=== PATIENT | male | born 1975 | race African-American/Black ===

== ENCOUNTER 2019-09-03 17:28 | Emergency (ER) | payer SELFPAY ==
--- NOTE | 2019-09-03 18:00 | EDM.PDOC ---
ED HPI GENERAL MEDICAL PROBLEM - General Chief Complaint: General Stated Complaint: BP ELEVATION Time Seen by Provider: 09/03/19 17:38 Source of Information: Reports: Patient History Limitations: Reports: No Limitations - History of Present Illness INITIAL COMMENTS - FREE TEXT/NARRATIVE: Patient is a 44-year-old gentleman who presents to the emergency department this evening via private vehicle for a complaint of blood pressure issue. Patient states he's been taking his blood pressure last couple days and noticed that it's been elevated. Patient contacted the clinic and was told to follow- up tomorrow or Saturday. However, he was concerned, so presented to the emergency department. Patient said blood pressures been running 150-160 systolic. Patient is currently on 10 mg lisinopril daily. Patient states that he used to take it at 6-7 o'clock in the morning, but the last week or so he's been taken at 1 p.m. in the afternoon. Patient changed medication time because of a sleeping scheduled. Patient does have intermittent GERD. Patient denies fever, chest pain, out of area travel, cough, nausea, vomiting, diarrhea, headache, abdominal pain, lower extremity edema, early cardiac family history, or any other cardiac history. Onset: Gradual Duration: Chronic Severity: Mild Improves with: Reports: None Worsens with: Reports: None Associated Symptoms: Reports: No Other Symptoms - Related Data Allergies Allergy/AdvReac Type Severity Reaction Status Date / Time acetaminophen [From Tylenol] Allergy Vomiting Verified 09/03/19 17:55 codeine Allergy Vomiting Verified 09/03/19 17:55 Home Meds: Home Meds SUMAtriptan Succinate [Imitrex] 2 tab PO ASDIRECTED PRN 08/18/13 [History] Ibuprofen [Advil] 3 tab PO Q4HR PRN 08/21/13 [History] Past Medical History - Past Health History Medical/Surgical History: Denies Medical/Surgical History ED ROS GENERAL - Review of Systems Review Of Systems: Comprehensive ROS is negative, except as noted in HPI. Constitutional: Reports: No Symptoms HEENT: Reports: No Symptoms Respiratory: Reports: No Symptoms Cardiovascular: Reports: No Symptoms Endocrine: Reports: No Symptoms GI/Abdominal: Reports: Other (Heartburn) : Reports: No Symptoms Musculoskeletal: Reports: No Symptoms Skin: Reports: No Symptoms Neurological: Reports: No Symptoms Psychiatric: Reports: No Symptoms Hematologic/Lymphatic: Reports: No Symptoms Immunologic: Reports: No Symptoms ED EXAM, GENERAL - Physical Exam Exam: See Below Exam Limited By: No Limitations General Appearance: Alert, WD/WN, No Apparent Distress Eye Exam: Bilateral Eye: Normal Inspection Nose: Normal Inspection, Normal Mucosa, No Blood Throat/Mouth: Normal Inspection, Normal Oropharynx, No Airway Compromise Head: Atraumatic, Normocephalic Neck: Normal Inspection, Supple, Non-Tender, Full Range of Motion Respiratory/Chest: No Respiratory Distress, Lungs Clear, Normal Breath Sounds, No Accessory Muscle Use, Chest Non-Tender Cardiovascular: Normal Peripheral Pulses, Regular Rate, Rhythm, No Murmur, No Rub GI/Abdominal: Normal Bowel Sounds, Soft, Non-Tender, No Abnormal Bruit Back Exam: Normal Inspection. No: CVA Tenderness (L), CVA Tenderness (R) Extremities: Normal Inspection, No Pedal Edema Neurological: Alert, Oriented, Normal Cognition Psychiatric: Normal Affect, Normal Mood Skin Exam: Warm, Dry, Intact, Normal Color, No Rash Lymphatic: No Adenopathy EKG INTERPRETATION EKG Date: 09/03/19 Time: 18:10 Rhythm: Other (Sinus bradycardia with first-degree AV block) Rate (Beats/Min): 48 Horatio: Normal P-Wave: Present QRS: Normal ST-T: Normal QT: Normal Comparison: No Change (Per Soy Luo, SANKET) Course - Vital Signs Last Recorded V/S: Last Vital Signs Temp 97.7 F 09/03/19 17:35 Pulse 65 09/03/19 17:35 Resp 20 09/03/19 17:35 BP 137/83 09/03/19 17:35 Pulse Ox 95 09/03/19 17:35 - Orders/Labs/Meds Orders: Active Orders 24 hr Category Date Time Status EKG Documentation Completion [RC] ASDIRECTED Care 09/03/19 17:53 Ordered EKG 12 Lead [EK] Routine Ther 09/03/19 17:53 Ordered - Re-Assessments/Exams Free Text/Narrative Re-Assessment/Exam: 09/03/19 18:21 patient afebrile, vital signs stable, denies chest pain or shortness of breath. EKG performed and did show sinus bradycardia at 48 with first AV block. Discussed case with Soy Luo and he states that this is normal EKG for this patient, no need for workup tonight, and he will have patient follow-up in the office tomorrow. Departure - Departure Time of Disposition: 18:22 Disposition: Home, Self-Care 01 Condition: Good Clinical Impression: Hypertension screening - Discharge Information Instructions: Hypertension, Adult, [id number], Managing Your Hypertension Referrals: Soy Luo [employer] OFFICER [Primary Care Provider] - Forms: ED Department Discharge Additional Instructions: Follow-up as scheduled tomorrow at [facility] with Soy Luo. Return to emergency department sooner if symptoms continue or worsen. Sepsis Event Note - Evaluation Sepsis Screening Result: No Definite Risk - Focused Exam Vital Signs: Vital Signs Temp Pulse Resp BP Pulse Ox 09/03/19 17:35 97.7 F 65 20 137/83 95 Date Exam was Performed: 09/03/19 Time Exam was Performed: 17:55 - My Orders Last 24 Hours: My Active Orders 09/03/19 17:53 EKG Documentation Completion [RC] ASDIRECTED EKG 12 Lead [EK] Routine - Assessment/Plan Last 24 Hours: My Active Orders 09/03/19 17:53 EKG Documentation Completion [RC] ASDIRECTED EKG 12 Lead [EK] Routine Assessment:: Hypertension Plan: Follow-up at clinic tomorrow as scheduled
== END 2019-09-03 18:35 | disposition home or self-care (01) ==
LOC: KA.ED 17:28
DX: Z13.6 Encounter for screening for cardiovascular disorders (principal); Z88.5 Allergy status to narcotic agent; Z88.8 Allergy status to other drugs, medicaments and biological substances
CPT/HCPCS: 93005; 99282-25; 99284

== ENCOUNTER 2019-09-06 04:06 | Emergency (ER) | payer SELFPAY ==
[2019-09-06 04:20] VITALS: BP 144/85; PULSE 70
--- NOTE | 2019-09-06 04:43 | EDM.PDOC ---
ED HPI GENERAL MEDICAL PROBLEM - General Chief Complaint: General Stated Complaint: hemorrhoids Time Seen by Provider: 09/06/19 04:36 Source of Information: Reports: Patient History Limitations: Reports: No Limitations - History of Present Illness INITIAL COMMENTS - FREE TEXT/NARRATIVE: Patient is a 44-year-old gentleman who presents to the emergency department via private vehicle this evening with a complaint of rectal bleeding. Patient states that approximately 1130 p.m. last night following a bowel movement. He had rectal bleeding. Patient states that he took a shower and noticed a lot of blood. Patient states that bleeding was intermittent, but continued and he became concerned and presented to the emergency department. Patient admits to history of intermittent hemorrhoids. He uses Epson salt bath and hemorrhoid cream. Today was sudden followed bowel movement and they became concerned. Patient denies chest pain, shortness of breath, weakness, abdominal pain, leading disorders, anticoagulation therapy, nausea, vomiting. Onset: Sudden Onset Date: 09/05/19 Onset Time: 23:30 Duration: Hour(s): Location: Reports: Other (Rectum) Quality: Reports: Burning Severity: Mild Improves with: Reports: None Worsens with: Reports: Other (Bowel movement) Associated Symptoms: Reports: No Other Symptoms - Related Data Allergies Allergy/AdvReac Type Severity Reaction Status Date / Time acetaminophen [From Tylenol] Allergy Vomiting Verified 09/06/19 04:07 codeine Allergy Vomiting Verified 09/06/19 04:07 Home Meds: Home Meds lisinopriL [Lisinopril] 10 mg PO DAILY 09/03/19 [History] Melatonin 5 mg PO BEDTIME PRN 09/06/19 [History] Past Medical History - Past Health History Medical/Surgical History: Denies Medical/Surgical History Cardiovascular History: Reports: Hypertension Gastrointestinal History: Reports: Hemorrhoids Psychiatric History: Reports: Anxiety Social & Family History - Tobacco Use Smoking Status *Q: Former Smoker Used Tobacco, but Quit: Yes Month/Year Tobacco Last Used: 08/31/2019 - Caffeine Use Caffeine Use: Reports: None - Recreational Drug Use Recreational Drug Use: No ED ROS GENERAL - Review of Systems Review Of Systems: Comprehensive ROS is negative, except as noted in HPI. Constitutional: Reports: No Symptoms HEENT: Reports: No Symptoms Respiratory: Reports: No Symptoms Cardiovascular: Reports: No Symptoms Endocrine: Reports: No Symptoms GI/Abdominal: Reports: Other (Bleeding hemorrhoid) : Reports: No Symptoms Musculoskeletal: Reports: No Symptoms Skin: Reports: No Symptoms Neurological: Reports: No Symptoms Psychiatric: Reports: No Symptoms Hematologic/Lymphatic: Reports: No Symptoms Immunologic: Reports: No Symptoms ED EXAM, GENERAL - Physical Exam Exam: See Below Exam Limited By: No Limitations General Appearance: Alert, WD/WN, No Apparent Distress Throat/Mouth: Normal Inspection, Normal Oropharynx, No Airway Compromise Respiratory/Chest: No Respiratory Distress GI/Abdominal: Normal Bowel Sounds, Soft, Non-Tender, No Organomegaly, No Distention, Other (External thrombosed hemorrhoid with blood clot, but currently hemostatic) Back Exam: Normal Inspection. No: CVA Tenderness (L), CVA Tenderness (R) Extremities: Normal Inspection Neurological: Alert, Oriented, Normal Cognition Psychiatric: Normal Affect, Normal Mood Skin Exam: Warm, Dry, Intact, Normal Color, No Rash Lymphatic: No Adenopathy Course - Vital Signs Last Recorded V/S: Last Vital Signs Temp 97.6 F 09/06/19 04:15 Pulse 70 09/06/19 04:15 Resp 20 09/06/19 04:15 BP 144/85 H 09/06/19 04:15 Pulse Ox 95 09/06/19 04:15 - Re-Assessments/Exams Free Text/Narrative Re-Assessment/Exam: 09/06/19 04:43 Patient afebrile, vital signs stable, gauze applied to external thrombosed hemorrhoid for good hemostasis. Patient will follow-up at [facility]. Departure - Departure Time of Disposition: 04:44 Disposition: Home, Self-Care 01 Condition: Good Clinical Impression: Hemorrhoids - Discharge Information Instructions: Hemorrhoids, [id number], Nonsurgical Procedures for Hemorrhoids , Surgical Procedures for Hemorrhoids Referrals: Cruz Mahajan MD [Physician] - Additional Instructions: Follow-up at [facility] tomorrow. Return to emergency department sooner symptoms continue or worsen. Sepsis Event Note - Evaluation Sepsis Screening Result: No Definite Risk - Focused Exam Vital Signs: Vital Signs Temp Pulse Resp BP Pulse Ox 09/06/19 04:15 97.6 F 70 20 144/85 H 95 Date Exam was Performed: 09/06/19 Time Exam was Performed: 04:36 - Assessment/Plan Assessment:: Hemorrhoids Plan: Follow-up at [facility]
== END 2019-09-06 04:50 | disposition home or self-care (01) ==
LOC: KA.ED 04:06
DX: K64.4 Residual hemorrhoidal skin tags (principal); I10 Essential (primary) hypertension; Z87.891 Personal history of nicotine dependence; Z88.5 Allergy status to narcotic agent; Z88.8 Allergy status to other drugs, medicaments and biological substances; Z79.899 Other long term (current) drug therapy
CPT/HCPCS: 99283

== ENCOUNTER 2021-01-04 08:22 | Emergency (ER) | payer MEDICAID ==
--- NOTE | 2021-01-04 08:44 | EDM.PDOC ---
ED HPI GENERAL MEDICAL PROBLEM - General Chief Complaint: ENT Problem Stated Complaint: cough Time Seen by Provider: 01/04/21 08:43 Source of Information: Reports: Patient - History of Present Illness INITIAL COMMENTS - FREE TEXT/NARRATIVE: Gagandeep, 45-year-old male, presents to the emergency department as he was unable to obtain a clinic appointment this morning. Yesterday he had a hard cough and felt a pressure/pain in his lower neck on the right side. He had sinus congestion symptoms last week as he states his daughter had similar symptoms that resolved with his starting at the time of her resolution. He has not had fever but states fullness in his head and face and then the cough. At the time the cough induced this pain he has felt irritated to swallowing of food or drink as well as cough worsening throat pain. He has had no other symptoms of body aches shortness of breath, or GI upset. Onset: Today, Sudden Duration: Hour(s): Location: Reports: Neck Quality: Reports: Burning Severity: Severe Improves with: Reports: None Worsens with: Reports: Eating Associated Symptoms: Reports: No Other Symptoms Throat Pain Score (Numeric/FACES): 8 - Related Data Allergies Allergy/AdvReac Type Severity Reaction Status Date / Time acetaminophen [From Tylenol] Allergy Vomiting Verified 01/04/21 08:46 codeine Allergy Vomiting Verified 01/04/21 08:46 Home Meds: Home Meds lisinopriL [Lisinopril] 10 mg PO DAILY 09/03/19 [History] Multivitamin 1 tab PO DAILY 01/04/21 [History] Past Medical History - Past Health History Medical/Surgical History: Denies Medical/Surgical History HEENT History: Reports: Allergic Rhinitis Cardiovascular History: Reports: Hypertension Gastrointestinal History: Reports: Hemorrhoids Psychiatric History: Reports: Anxiety Social & Family History - Family History Family Medical History: No Pertinent Family History - Caffeine Use Caffeine Use: Reports: None ED ROS GENERAL - Review of Systems Review Of Systems: Comprehensive ROS is negative, except as noted in HPI. ED EXAM, GENERAL - Physical Exam Exam: See Below Free Text/Narrative:: Alert, oriented, in mild discomfort to swallowing. There is mild cerumen in the canals with no obstruction and no evidence of irritation to the tympanic membranes. Nasal passages are hypertrophied with dark-tinged drainage. Mild tenderness to the ethmoid and maxillary region to palpation. Oropharynx is erythematous with some drainage present. Significant gag reflex when obtaining culture swabs and any tongue blade manipulation. Moist membranes throughout. Neck is soft supple there is tenderness to the right mid and superior lymph node chain anteriorly with no crepitus or gross enlargement of lymph node present. Thorax is overall clear exhalation does induce cough. Cardiac is regular with no murmur appreciated. No flank pain no abdominal discomfort. Course - Vital Signs Last Recorded V/S: Last Vital Signs Temp 97.2 F 01/04/21 08:41 Pulse 68 01/04/21 08:41 Resp 16 01/04/21 08:41 BP 129/83 01/04/21 08:41 Pulse Ox 97 01/04/21 08:41 - Orders/Labs/Meds Orders: Active Orders 24 hr Category Date Time Status STREP SCRN A RAPID W CULT CONF [RM] Stat Lab 01/04/21 08:57 Results - Re-Assessments/Exams Free Text/Narrative Re-Assessment/Exam: 01/04/21 09:49 Discussed that viral etiology most likely with no findings on rapid strep as well as chest x-ray. Avoid exposures today and follow-up as needed. Departure - Departure Time of Disposition: 09:47 Disposition: Home, Self-Care 01 Condition: Good Clinical Impression: Pharyngitis, Cough - Discharge Information *PRESCRIPTION DRUG MONITORING PROGRAM REVIEWED*: Not Applicable *COPY OF PRESCRIPTION DRUG MONITORING REPORT IN PATIENT MELANIE: Not Applicable Referrals: Soy Luo [employer] [Primary Care Provider] - Forms: ED Department Discharge, ED Return to Work/School Form Additional Instructions: Continue with your salt water gargles and any other oral rinses that are beneficial. Tylenol may be taken as needed for pain or fever, 1000 mg 3 times a day, maximum 3000 mg in 24 hours. Ibuprofen Motrin, or Aleve, may be used also for pain or fever. Ibuprofen dosing maximum of 800 mg every 8 hours with food. Rapid testing was negative for strep, culture is pending and will likely give us a report on Saturday the . Follow-up with your clinic as needed, return to the emergency department if unable to be seen in clinic. No work until tomorrow with slip given for your employer. Sepsis Event Note (ED) - Focused Exam Vital Signs: Vital Signs Temp Pulse Resp BP Pulse Ox 01/04/21 08:41 97.2 F 68 16 129/83 97 - Problem List & Annotations (1) Cough SNOMED Code(s): 30822106 Code(s): R05 - COUGH Status: Acute Priority: High Current Visit: Yes (2) Pharyngitis SNOMED Code(s): 836114786 Code(s): J02.9 - ACUTE PHARYNGITIS, UNSPECIFIED Status: Acute Priority: High Current Visit: Yes Qualifiers: Pharyngitis/tonsillitis etiology: unspecified etiology Qualified Code(s): J02.9 - Acute pharyngitis, unspecified - Problem List Review Problem List Initiated/Reviewed/Updated: Yes - My Orders Last 24 Hours: My Active Orders 01/04/21 08:57 STREP SCRN A RAPID W CULT CONF [RM] Stat - Assessment/Plan Last 24 Hours: My Active Orders 01/04/21 08:57 STREP SCRN A RAPID W CULT CONF [RM] Stat Plan: Continue with your salt water gargles and any other oral rinses that are beneficial. Tylenol may be taken as needed for pain or fever, 1000 mg 3 times a day, maximum 3000 mg in 24 hours. Ibuprofen Motrin, or Aleve, may be used also for pain or fever. Ibuprofen dosing maximum of 800 mg every 8 hours with food. Rapid testing was negative for strep, culture is pending and will likely give us a report on Saturday the . Follow-up with your clinic as needed, return to the emergency department if unable to be seen in clinic. No work until tomorrow with slip given for your employer.
[2021-01-04 08:46] VITALS: BP 129/83; PULSE 68
--- NOTE | 2021-01-04 09:31 | CR ---
[id number] RAD/RAD Chest PA And Lateral EXAM: RAD Chest PA And Lateral INDICATION: COUGH. COMPARISON: None. DISCUSSION/IMPRESSION: Cardiomediastinal silhouette is normal in size and contour. Lungs are clear. No pleural effusion or pneumothorax. Brett Ackerman MD 01/04/21 0953 Thank you for allowing us to participate in the care of your patient.
== END 2021-01-04 10:00 | disposition home or self-care (01) ==
LOC: KA.ED 08:22
DX: J02.9 Acute pharyngitis, unspecified (principal); H61.20 Impacted cerumen, unspecified ear; I10 Essential (primary) hypertension; Z88.5 Allergy status to narcotic agent; Z88.8 Allergy status to other drugs, medicaments and biological substances; Z79.899 Other long term (current) drug therapy
CPT/HCPCS: 71046; 87430; 99283; 99283-25

== ENCOUNTER 2021-05-26 11:50 | Emergency (ER) | payer MEDICAID ==
[2021-05-26] MEDS ORDERED: LORazepam 0.5 MG Tab PO ONE ×2 (13:25→13:32)
--- NOTE | 2021-05-26 13:34 | EDM.PDOC ---
ED HPI GENERAL MEDICAL PROBLEM - General Chief Complaint: General Stated Complaint: COVID SYMPTOMS Time Seen by Provider: 05/26/21 12:22 Source of Information: Reports: Patient, Family (dtr) History Limitations: Reports: No Limitations - History of Present Illness INITIAL COMMENTS - FREE TEXT/NARRATIVE: Patient presents with stress and anxiety. He says he has been dealing with a lot of stress lately and is feeling quite anxious. He denies fever, pain in chest or abdomen, headache, vomiting, diarrhea. He doesn't like taking pills and hasn't ever taken anything for anxiety. - Related Data Allergies Allergy/AdvReac Type Severity Reaction Status Date / Time acetaminophen [From Tylenol] Allergy Vomiting Verified 05/26/21 12:06 codeine Allergy Vomiting Verified 05/26/21 12:06 Home Meds: Home Meds lisinopriL [Lisinopril] 10 mg PO DAILY 09/03/19 [History] Multivitamin 1 tab PO DAILY 01/04/21 [History] Past Medical History - Past Health History Medical/Surgical History: Denies Medical/Surgical History HEENT History: Reports: Allergic Rhinitis Cardiovascular History: Reports: Hypertension Gastrointestinal History: Reports: Hemorrhoids Psychiatric History: Reports: Anxiety Social & Family History - Family History Family Medical History: No Pertinent Family History - Tobacco Use Tobacco Use Status *Q: Current Every Day Tobacco User Years of Tobacco use: 20 Packs/Tins Daily: 0.2 - Caffeine Use Caffeine Use: Reports: Energy Drinks, Tea - Recreational Drug Use Recreational Drug Use: No ED ROS GENERAL - Review of Systems Review Of Systems: Comprehensive ROS is negative, except as noted in HPI. ED EXAM, GENERAL - Physical Exam Exam: See Below Exam Limited By: No Limitations General Appearance: Alert, WD/WN, No Apparent Distress Eye Exam: Bilateral Eye: EOMI, Normal Inspection, PERRL Ears: Normal External Exam, Normal Canal, Hearing Grossly Normal, Normal TMs Nose: Normal Inspection, Normal Mucosa, No Blood Throat/Mouth: Normal Inspection, Normal Lips, Normal Teeth, Normal Gums, Normal Oropharynx, Normal Voice, No Airway Compromise Head: Atraumatic, Normocephalic Neck: Normal Inspection, Full Range of Motion Respiratory/Chest: No Respiratory Distress, Lungs Clear, Normal Breath Sounds Cardiovascular: Regular Rate, Rhythm, No Murmur Back Exam: Normal Inspection, Full Range of Motion Extremities: Normal Inspection, Normal Range of Motion Neurological: Alert, Oriented, Normal Cognition, No Motor/Sensory Deficits Psychiatric: Normal Affect, Normal Mood Skin Exam: Warm, Dry, Intact, Normal Color, No Rash Course - Vital Signs Last Recorded V/S: Last Vital Signs Temp 97.2 F 05/26/21 12:01 Pulse 69 05/26/21 12:01 Resp 18 05/26/21 12:01 BP 125/88 05/26/21 12:01 Pulse Ox 94 L 05/26/21 12:01 - Orders/Labs/Meds Orders: Active Orders 24 hr Category Date Time Status LORazepam [Ativan] Med 05/26/21 13:25 Once 0.5 mg PO ONETIME ONE - Re-Assessments/Exams Free Text/Narrative Re-Assessment/Exam: 05/26/21 13:38 I discussed findings and treatment options with patient. He is okay with trying Ativan as needed. His daughter is only 13 so he doesn'nt have a tow driver today. I sent 4 tabs of ATivan 0.5 mg home with patient to take q4-6h prn anxiety. Advised followup with PCP next week for recheck and to determine if chronic management is needed. Patient discharged to home in stable condition. I warned against any use with alcohol and he says he doesn't drink any more. Departure - Departure Time of Disposition: 13:28 Disposition: Home, Self-Care 01 Condition: Good Clinical Impression: Anxiety as acute reaction to exceptional stress - Discharge Information Instructions: Managing Anxiety, Adult Referrals: Soy Luo, [employer] EDUCATION PRESCHOOL TEACHER [Primary Care Provider] - Additional Instructions: Continue drinking at least 8 cups of water daily. Take the Ativan as directed. Next week, follow up with your PCP to discuss your anxiety and how the Ativan worked for you. If worsening, recheck in clinic or ER as needed. Sepsis Event Note (ED) - Evaluation Sepsis Screening Result: No Definite Risk - Focused Exam Vital Signs: Vital Signs Temp Pulse Resp BP Pulse Ox 05/26/21 12:01 97.2 F 69 18 125/88 94 L - My Orders Last 24 Hours: My Active Orders 05/26/21 13:25 LORazepam [Ativan] 0.5 mg PO ONETIME ONE - Assessment/Plan Last 24 Hours: My Active Orders 05/26/21 13:25 LORazepam [Ativan] 0.5 mg PO ONETIME ONE
== END 2021-05-26 13:44 | disposition home or self-care (01) ==
LOC: KA.ED 11:50
DX: F41.9 Anxiety disorder, unspecified (principal); F43.9 Reaction to severe stress, unspecified; Z88.5 Allergy status to narcotic agent; Z88.8 Allergy status to other drugs, medicaments and biological substances; Z79.899 Other long term (current) drug therapy; Z72.0 Tobacco use
CPT/HCPCS: 99283; A9270

== ENCOUNTER 2022-12-25 10:11 | Emergency (ER) | payer MEDICAID | END 2022-12-25 12:00 | disposition home or self-care (01) | LOC: KA.ED 10:11 | DX: R42 Dizziness and giddiness (principal); F41.8 Other specified anxiety disorders; I10 Essential (primary) hypertension; Z88.5 Allergy status to narcotic agent | CPT/HCPCS: 99283; 99284 ==